=== PATIENT | female | born 1950 | race Caucasian/White ===

== ENCOUNTER 2016-06-30 12:32 | Outpatient (CLI) | payer MEDICARE ==
[2016-06-30 13:01] LABS: Hemoglobin A1c 4.9 % (4.0-6.0)
[2016-06-30 13:31] LABS: ALT (SGPT) 28 U/L (0-55); AST (SGOT) 28 U/L (5-34); Albumin 4.6 g/dL (3.4-4.8); Alkaline Phosphatase 64 U/L (40-150); Anion Gap 16 mmol/L (10-20); BUN (Urea Nitrogen) 11 mg/dL (9.8-20.1); Bilirubin, Total 0.6 mg/dL (0.2-1.2); Calc. Creatinine Clearance 0 mL/min (70-130); Calcium 10.2 mg/dL (7.8-10.44); Carbon Dioxide 25 mmol/L (23-31); Cardiac Risk 9.7 (Less than 4.5); Chloride 106 mmol/L (98-107); Cholesterol 291 mg/dL (< 200 Desired); Estimated GFR-MDRD 84; Globulin 2.5 g/dL (2.4-3.5); Glucose 94 mg/dL (80-115); HDL Cholesterol 30 mg/dL (>60 Neg Risk); LDL Cholesterol, Calculated 184 mg/dL; Potassium 5.3 mmol/L (3.5-5.1); Protein, Total 7.1 g/dL (5.8-8.1); Sodium 142 mmol/L (136-145); Triglycerides 385 mg/dL (Less than 150)
[2016-06-30 13:35] LABS: #Eosinphils 0.1 thou/uL (0.0-0.7); #Lymphocytes 2.1 thou/uL (1.20-3.40); #Monocytes 0.6 thou/uL (0.11-0.59); #Neutrophils 2.3 thou/uL (1.40-6.50); %Eosinophils 1.4 % (0.0-10.0); %Lymphocytes 40.5 % (21.0-51.0); %Monocytes 11.6 % (0.0-10.0); %Neutrophils 45.5 % (42.0-75.0); Hemoglobin 13.2 g/dL (12.0-16.0); Mean Corpuscular HGB CONC 33.2 g/dL (32.0-36.0); Mean Corpuscular Hemoglobin 30.7 pg (27.0-31.0); Mean Corpuscular Volume 92.3 fl (81.0-99.0); Mean Platelet Volume 7.8 fL (7.4-10.4); Platelet Count 232 thou/uL (130-400); RBC Distribution Width 13.3 % (11.5-14.5); Red Blood Cell (RBC) Count 4.31 mill/uL (4.20-5.40); White Blood Cell (WBC) Count 5.1 thou/uL (4.8-10.8)
[2016-06-30 13:47] LABS: Free T4 (Free Thyroxine) 0.92 ng/dL (0.70-1.48); Thyroid Stimulating Hormone 1.216 uIU/mL (0.35-4.94)
== END 2016-06-30 12:33 | disposition home or self-care (01) ==
LOC: MADLABBHPM 12:32
PROVIDERS: ATTEND Family Medicine
DX: I47.1 Supraventricular tachycardia (principal)
CPT/HCPCS: 36415; 80053; 80061; 83036; 84439; 84443; 85025

== ENCOUNTER 2017-02-20 11:45 | Emergency (ER) | payer MEDICARE ==
[2017-02-20] MEDS ORDERED: cefTRIAXone\\ROCEPHIN 1 GM VIAL ONE (12:33)
[2017-02-20] MEDS ORDERED: Lidocaine 1% 20 ML MDV ONE (12:34)
== END 2017-02-20 12:50 | disposition home or self-care (01) ==
LOC: MADERS 11:45
DX: J18.9 Pneumonia, unspecified organism (principal); F32.9 Major depressive disorder, single episode, unspecified; Z79.899 Other long term (current) drug therapy
CPT/HCPCS: 96372; J0696; J1040; J2001

== ENCOUNTER 2017-03-07 09:55 | Outpatient (CLI) | payer MEDICARE ==
--- NOTE | 2017-03-07 11:38 | RAD ---
TWO VIEW CHEST: HISTORY: Bronchopneumonia. COMPARISON: No comparison. FINDINGS: No confluent or focal infiltrate identified. No evidence of effusion. Heart and mediastinum unremar kable. IMPRESSION: No evidence of infiltrate identified. POS: [id number]
== END 2017-03-07 09:56 | disposition home or self-care (01) ==
LOC: MADRAD 09:55
PROVIDERS: ATTEND Family Medicine
DX: J18.0 Bronchopneumonia, unspecified organism (principal)
CPT/HCPCS: 71020